=== PATIENT | male | born 1940 | race Caucasian/White ===

== ENCOUNTER 2021-02-19 11:57 | Emergency (ER) | payer MEDICARE, BC ==
[~2021-02-19] VITALS: Ht 188 cm; Wt 136.1 kg
[~2021-02-19 11:57] MED LIST: ACYCLOVIR 800800 MG PO; ASPIRIN81 M2 PO; CEFTIN 250 MG250 MG PO; COUMADIN 5 MG TA5 M1 PO; CRESTOR10 MG PO; CRESTOR40 MG PO; FISH OIL 1,2001 EAC3; FISH OIL 1,2001 EAC3 PO; GLUCOPHAGE XR500 MG PO; GLUCOPHAGE500 MG; GLUCOSAMINE &1 EACH PO; GLUCOSE TEST S1 EACH; GLUCOTROL5 MG; LEVEMIR; LEVEMIR SUBQ; LIPITOR40 MG; LISINOPRIL10 MG PO; LISINOPRIL2.5 MG; MAXZIDE-25 MG1 EACH PO; METFORMIN HCL500 MG PO; METOPROLOL TART25 MG PO; MINIPRIN81 MG; NITROGLYCERIN0.4 MG; NORCO 5-325 TA1 EACH PO; NOVOLOG100 UNIT/1; THERA-M CAPLET1 EACH; TOPROL XL100 MG; VITAMINC500 PO; ZPAK PO; [UNRECOGNIZED DRUG - OTHER] PO
[2021-02-19] MEDS ORDERED: LIPITOR40 MG PO (12:09)
[2021-02-19] MEDS ORDERED: TRIAMTERENE/HCT1 CA1 PO (12:11)
[2021-02-19] MEDS ORDERED: AVAPRO300 MG PO (12:11)
[2021-02-19] MEDS ORDERED: CEPHALEXIN500 MG PO (12:41)
[2021-02-19] MEDS ORDERED: BACTRIM DS TAB1 EACH PO (12:41)
[2021-02-19 13:23] VITALS: BP 151/70
== END 2021-02-19 13:24 | disposition home or self-care (01) ==
LOC: M.ERS 11:57
DX: E11.622 Type 2 diabetes mellitus with other skin ulcer (principal); L97.818 Non-pressure chronic ulcer of other part of right lower leg with other specified severity; I25.10 Atherosclerotic heart disease of native coronary artery without angina pectoris; I48.91 Unspecified atrial fibrillation; E11.9 Type 2 diabetes mellitus without complications; Z95.1 Presence of aortocoronary bypass graft; Z90.89 Acquired absence of other organs; Z79.4 Long term (current) use of insulin

== ENCOUNTER → 2021-02-26 | Outpatient (CLI) | payer MEDICARE, BC ==
[~2021-02-26] MED LIST changes: +AVAPRO300 MG PO; +BACTRIM DS TAB1 EACH PO; +CEPHALEXIN500 MG PO; +LIPITOR40 MG PO; +TRIAMTERENE/HCT1 CA1 PO
== END ==
LOC: M.WC 08:38
PROVIDERS: ATTEND Surgery
DX: E11.622 Type 2 diabetes mellitus with other skin ulcer (principal); I87.311 Chronic venous hypertension (idiopathic) with ulcer of right lower extremity; L97.811 Non-pressure chronic ulcer of other part of right lower leg limited to breakdown of skin; L03.115 Cellulitis of right lower limb; I25.10 Atherosclerotic heart disease of native coronary artery without angina pectoris; I25.2 Old myocardial infarction; I48.91 Unspecified atrial fibrillation; Z79.82 Long term (current) use of aspirin; Z87.891 Personal history of nicotine dependence; Z95.1 Presence of aortocoronary bypass graft

== ENCOUNTER → 2021-03-05 | Outpatient (CLI) | payer MEDICARE, BC | LOC: M.WC 08:45 | PROVIDERS: ATTEND Surgery | DX: E11.622 Type 2 diabetes mellitus with other skin ulcer (principal); I87.311 Chronic venous hypertension (idiopathic) with ulcer of right lower extremity; L97.812 Non-pressure chronic ulcer of other part of right lower leg with fat layer exposed; L03.115 Cellulitis of right lower limb; I25.10 Atherosclerotic heart disease of native coronary artery without angina pectoris; I25.2 Old myocardial infarction; I48.91 Unspecified atrial fibrillation; Z87.891 Personal history of nicotine dependence ==

== ENCOUNTER → 2021-03-12 | Outpatient (CLI) | payer MEDICARE, BC | LOC: M.WC 07:50 | PROVIDERS: ATTEND Surgery | DX: E11.622 Type 2 diabetes mellitus with other skin ulcer (principal); I87.311 Chronic venous hypertension (idiopathic) with ulcer of right lower extremity; L97.812 Non-pressure chronic ulcer of other part of right lower leg with fat layer exposed; L03.115 Cellulitis of right lower limb; I25.10 Atherosclerotic heart disease of native coronary artery without angina pectoris; I25.2 Old myocardial infarction; I48.91 Unspecified atrial fibrillation; Z87.891 Personal history of nicotine dependence ==